=== PATIENT | female | born 1960 | race African-American/Black ===

== ENCOUNTER 2016-06-18 08:00 | Emergency (ER) | payer OTHER ==
[~2016-06-18] VITALS: Ht 167.6 cm; Wt 86.4 kg
[~2016-06-18 08:00] MED LIST: FLEXERIL10 MG PO; IBUPROFEN200 M1 PO; LISINOPRIL-HCT1 EAC3 PO; LORTAB 5-500 T1 EACH PO; MECLIZINE HCL25 MG PO; MOTRIN600 MG PO; MOTRIN800 MG PO; PREDNISONE10 M1 PO; TYLENOL325 M1 PO; ZITHROMAX Z-PA250 MG PO; ZOFRAN ODT4 MG PO
[2016-06-18 08:35] LABS: HEMATOCRIT 29.8 % (36.0-46.0); MCH 21.4 PG (29.0-34.0); MCHC 28.5 G/DL (30.0-36.0); MCV 74.9 FL (83-99); MEAN PLAT.VOLUME 10.4 uM^3 (9.5-12.4); PLATELET COUNT 217 K/uL (156-360); RBC DIS.WIDTH-CV 18.2 % (11.8-14.6); RBC DIS.WIDTH-SD 48.7 % (39-53); RED BLOOD COUNT 3.98 M/uL (3.80-5.20); WHITE BLOOD COUNT 4.3 K/uL (4.1-10.2)
[2016-06-18 08:42] LABS: CHLORIDE 113 mEq/L (99-109); POTASSIUM 3.9 mEq/L (3.7-5.4); SODIUM 140 mEq/L (136-147)
[2016-06-18 08:44] LABS: GLUCOSE 92 mg/dL (70-99)
[2016-06-18 08:46] LABS: ANION GAP 8 MEQ/L (2-14)
[2016-06-18 08:48] LABS: GFR ESTIMATE (CALCULATED) > 59 mL/min/
[2016-06-18 08:49] LABS: UREA NITROGEN (BUN) 11 mg/dL (9-23)
[2016-06-18 09:33] LABS: TROP-I INTERPRETATION NEGATIVE; TROPONIN-I < 0.01 ng/mL (0.0-0.30)
[2016-06-18] MEDS ORDERED: ZESTORETIC 20-1 EAC2 PO (10:17)
[2016-06-18 11:27] VITALS: BP 171/101
== END 2016-06-18 11:28 | disposition home or self-care (01) ==
LOC: EME 08:00
PROVIDERS: Emergency Medicine
DX: D64.9 Anemia, unspecified (principal); I10 Essential (primary) hypertension; R06.09 Other forms of dyspnea; E11.9 Type 2 diabetes mellitus without complications; E78.5 Hyperlipidemia, unspecified
CPT/HCPCS: 80048; 84484; 85027; 93005; 99281; 99284